=== PATIENT | male | born 1975 | race African-American/Black ===

== ENCOUNTER 2017-11-03 01:21 | Emergency (ER) | payer OTHER ==
[~2017-11-03] VITALS: Ht 170.2 cm; Wt 90.7 kg
[2017-11-03 01:21] VITALS: BP 150/106
[~2017-11-03 01:21] MED LIST: VENTOLIN HFA18 GM IH
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
== END 2017-11-03 01:53 | disposition home or self-care (01) ==
LOC: ER 01:21
DX: K13.79 Other lesions of oral mucosa (principal); J45.909 Unspecified asthma, uncomplicated
CPT/HCPCS: 99281